=== PATIENT | female | born 1995 | race Caucasian/White ===

== ENCOUNTER → 2023-06-27 | Emergency (ER) | payer MEDICAID, OTHER, SELFPAY ==
[~2023-06-27] MED LIST: Ketorolac Tromethamine 30 MG (1 mL) VIAL ONE
[2023-06-27 20:12] LABS: Bilirubin Negative (Negative); Blood, Urine Moderate (Negative); Clarity Clear (Clear); Glucose, Urine (Dipstick) Negative (Negative); Ketone, Urine Negative (Negative); Leukocyte Negative (Negative); Nitrite Negative (Negative); Protein, Urine (Dipstick) Negative (Neg-Trace); Urobilinogen 0.2 mg/dL (Less than 2)
[2023-06-27 20:13] LABS: Pregnancy Test - Urine (BHCG) Negative (Negative); Pregu Control Background? CLEAR/WHITE (CLR/WHITE); Pregu Control Bar Appear? YES (CONTROL BAR)
[2023-06-27 20:19] LABS: Bacteria/HPF Rare-Few HPF (None Seen); CAUTI Indications for Culture Pelvic or flank pain; RBC/HPF 0-3 HPF (0-3); Squamous Epithelial 0-3 HPF (0-3); Urine Culture Reflex No No; WBC/HPF 0-3 HPF (0-3)
== END ==
LOC: BURERS 19:27
DX: N94.6 Dysmenorrhea, unspecified (principal); Z55.6 Problems related to health literacy; Z87.891 Personal history of nicotine dependence
CPT/HCPCS: 81001; 81025; 96372; 99284; J1885